=== PATIENT | female | born 1985 | race Caucasian/White ===

== ENCOUNTER 2017-10-31 16:30 | Observation (INO) | payer OTHER ==
[~2017-10-31] VITALS: Ht 160 cm; Wt 100.7 kg
[2017-10-31] MEDS ORDERED: PNV1TABL5 PO (17:11)
[2017-10-31] MEDS ORDERED: FERR-252 PO (17:11)
[2017-10-31 17:12] VITALS: BP 91/40
== END 2017-10-31 19:40 | disposition home or self-care (01) ==
LOC: MLD 16:30
PROVIDERS: ADMIT Obstetrics & Gynecology; ATTEND Obstetrics & Gynecology
DX: O36.8190 Decreased fetal movements, unspecified trimester, not applicable or unspecified (principal); Z3A.00 Weeks of gestation of pregnancy not specified
CPT/HCPCS: 76819; G0378; Q0092

== ENCOUNTER 2017-12-24 09:56 | Outpatient (CLI) | payer OTHER ==
[~2017-12-24 09:56] MED LIST: FERR-252 PO; PNV1TABL5 PO
[2017-12-24 10:57] LABS: BASOPHILS % (AUTO) 0.3 % (0.0-2.0); EOSINOPHILS # (AUTO) 0.1 K/uL (0-0.4); EOSINOPHILS % (AUTO) 1.4 % (0.0-4.0); HEMATOCRIT 37.8 % (36-48); HEMOGLOBIN 12.6 g/dL (12.0-16.0); LYMPHOCYTES % (AUTO) 21.3 % (20.5-51.1); MEAN CORPUSCULAR HEMOGLOBIN 31 pg (27-31); MEAN CORPUSCULAR HGB CONC 33 g/dL (33-37); MEAN CORPUSCULAR VOLUME 91.1 fL (80-94); MONOCYTES # (AUTO) 0.7 K/uL (0.8-1.0); MONOCYTES % (AUTO) 7.1 % (1.7-9.3); NEUTROPHILS # (AUTO) 6.5 K/uL (1.8-7.7); NEUTROPHILS % (AUTO) 69.9 % (42.2-75.2); PLATELET COUNT (AUTO) 115 K/uL (140-450); RED BLOOD CELL COUNT(AUTO) 4.15 MIL/uL (4.20-5.40); RED CELL DISTRIBUTION WIDTH 14.8 % (11.6-13.7); WHITE BLOOD COUNT (AUTO) 9.2 K/uL (4.8-10.8)
[2017-12-24 11:21] LABS: GLUCOSE,FASTING GESTATIONAL 95 mg/dL (70-110)
== END 2017-12-24 20:02 | disposition home or self-care (01) ==
LOC: MLB 09:56
PROVIDERS: ATTEND Obstetrics & Gynecology
DX: O99.810 Abnormal glucose complicating pregnancy (principal); Z3A.00 Weeks of gestation of pregnancy not specified
CPT/HCPCS: 36415; 82951; 83036; 85025